=== PATIENT | male | born 1965 | race Two or more races ===

== ENCOUNTER 2022-03-10 07:51 | Day surgery (SDC) | payer OTHER ==
[2022-03-07 16:50] VITALS: BMI 28.0
[2022-03-10 10:15] VITALS: TEMP 98
[2022-03-10 10:25] VITALS: BP 110/66; PULSE 62
== END 2022-03-10 10:25 | disposition home or self-care (01) ==
LOC: FASU-ENDO 07:51
PROVIDERS: ATTEND Internal Medicine Gastroenterology
PROC: 0DBM8ZX Excision of Descending Colon, Via Natural or Artificial Opening Endoscopic, Diagnostic (ICD-10-PCS; principal; 2022-03-10 09:37)
DX: Z12.11 Encounter for screening for malignant neoplasm of colon (principal); D12.4 Benign neoplasm of descending colon
CPT/HCPCS: 88305-TC